=== PATIENT | male | born 1930 | race Caucasian/White ===

== ENCOUNTER 2018-01-11 08:12 | Emergency (ER) | payer MEDICARE, BC ==
--- NOTE | 2018-01-11 08:17 | EDM.PDOC ---
ED HPI GENERAL MEDICAL PROBLEM - General Chief Complaint: Lower Extremity Injury/Pain Stated Complaint: POSSIBLE BROKEN HIP Time Seen by Provider: 01/11/18 08:15 Source of Information: Reports: Patient - History of Present Illness INITIAL COMMENTS - FREE TEXT/NARRATIVE: HISTORY AND PHYSICAL: History of present illness: [ Patient presents via EMS with slip and fall on the ice complains of right hip pain/right elbow pain uncertain of head injury slight confusion however patient has received 50 g of fentanyl via EMS No fever nausea vomiting chills sweats no chest pain shortness breath headache dizziness palpitation no bowel or urine symptoms ] Review of systems: As per history of present illness and below otherwise all systems reviewed and negative. Past medical history: As per history of present illness and as reviewed below otherwise noncontributory. Surgical history: As per history of present illness and as reviewed below otherwise noncontributory. Social history: No reported history of drug or alcohol abuse. Family history: As per history of present illness and as reviewed below otherwise noncontributory. Physical exam: HEENT: Atraumatic, normocephalic, pupils reactive, negative for conjunctival pallor or scleral icterus, mucous membranes moist, throat clear, neck supple, nontender, trachea midline. Lungs: Clear to auscultation, breath sounds equal bilaterally, chest nontender. Heart: S1S2, regular, negative for clicks, rubs, or JVD. Abdomen: Soft, nondistended, nontender. Negative for masses or hepatosplenomegaly. Negative for costovertebral tenderness. Pelvis: Stable nontender. Genitourinary: Deferred. Rectal: Deferred. Extremities: Atraumatic, negative for cords or calf pain. Neurovascular unremarkable. Right lower extremity shortened with internal rotation Neuro: Awake, alert, oriented. Cranial nerves II through XII unremarkable. Cerebellum unremarkable. Motor and sensory unremarkable throughout. Exam nonfocal. Diagnostics: [Pelvis with right hip plain films Chest 1 view Elbow complete plain films CT head no contrast CT cervical spine no contrast CBC CMP UA INR troponin EKG ] Therapeutics: [50 g of fentanyl provided EMS Dilaudid 0.5 mg IV Normal saline 1 25 mL per hour [facility] except[facility] ] Impression: [Fall Right hip pain] Right hip intertrochanteric fracture Definitive disposition and diagnosis as appropriate pending reevaluation and review of above. right hip Pain Score (Numeric/FACES): 5 - Related Data Allergies Allergy/AdvReac Type Severity Reaction Status Date / Time fluticasone Allergy Swelling Verified 01/11/18 08:14 [From Flovent Diskus] morphine Allergy Hallucinati Verified 01/11/18 08:14 ons Home Meds: Home Meds Ascorbic Acid [Vitamin C] 500 mg PO DAILY 01/11/18 [History] Calcium Carbonate/Vitamin D3 [Calcium 500 + Vit D 400] 1 each PO DAILY 01/11/18 [History] Donepezil HCl [Donepezil HCl Odt] 10 mg PO BEDTIME 01/11/18 [History] Levothyroxine 25 mcg PO ACBREAKFAST 01/11/18 [History] Multivitamin [Multi-Vitamin Daily] 1 each PO DAILY 01/11/18 [History] Potassium 1 tab PO DAILY 01/11/18 [History] Pravastatin Sodium 10 mg PO DAILY 01/11/18 [History] Past Medical History HEENT History: Reports: Hard of Hearing Cardiovascular History: Reports: High Cholesterol Respiratory History: Reports: None. Denies: COPD Gastrointestinal History: Reports: GERD Genitourinary History: Reports: Prostate Disorder Musculoskeletal History: Reports: None Other Musculoskeletal History: right rotator cuff surgery. Broken wrist. Neurological History: Reports: Other (See Below) Other Neuro History: short term memory Psychiatric History: Reports: None Endocrine/Metabolic History: Reports: Hypothyroidism. Denies: Diabetes, Type II Hematologic History: Reports: None Immunologic History: Reports: None Oncologic (Cancer) History: Reports: Prostate (treated) Dermatologic History: Reports: None - Infectious Disease History Infectious Disease History: Reports: Chicken Pox - Past Surgical History Head Surgeries/Procedures: Reports: None HEENT Surgical History: Reports: None Social & Family History - Family History Family Medical History: Noncontributory - Tobacco Use Smoking Status *Q: Never Smoker Used Tobacco, but Quit: Yes Month Tobacco Last Used: 11/15/69 Second Hand Smoke Exposure: No - Caffeine Use Caffeine Use: Reports: Coffee, Soda - Recreational Drug Use Recreational Drug Use: No - Living Situation & Occupation Living situation: Reports: Occupation: Retired Review of Systems - Review of Systems Review Of Systems: ROS reveals no pertinent complaints other than HPI. ED EXAM, GENERAL - Physical Exam Exam: See Below Course - Vital Signs Last Recorded V/S: Last Vital Signs Temp 97.4 F 01/11/18 09:43 Pulse 61 01/11/18 09:43 Resp 18 01/11/18 09:43 BP 154/67 H 01/11/18 09:43 Pulse Ox 96 01/11/18 09:43 - Orders/Labs/Meds Orders: Active Orders 24 hr Category Date Time Status EKG 12 Lead [EKG Documentation Completion] [RC] STAT Care 01/11/18 08:17 Active UA W/MICROSCOPIC [URIN] Stat Lab 01/11/18 08:17 Ordered HYDROmorphone [Dilaudid] Med 01/11/18 10:22 Ordered 0.5 mg IVPUSH ONETIME PRN Sodium Chloride 0.9% [Normal Saline] 500 ml Med 01/11/18 10:00 Active IV STAT Medication Orders Hydromorphone HCl (Dilaudid) 0.5 mg IVPUSH ONETIME PRN PRN Reason: Pain Sodium Chloride (Normal Saline) 500 mls @ 125 mls/hr IV STAT PANCHO Last Admin: 01/11/18 10:08 Dose: 125 mls/hr Labs: Laboratory Tests 01/11/18 01/11/18 01/11/18 Range/Units 08:25 08:25 08:25 WBC 8.53 (4.0-11.0) K/uL RBC 4.15 L (4.50-5.90) M/uL Hgb 13.2 (13.0-17.0) g/dL Hct 38.9 (38.0-50.0) % MCV 93.7 (80.0-98.0) fL MCH 31.8 (27.0-32.0) pg MCHC 33.9 (31.0-37.0) g/dL RDW Std Deviation 46.2 (28.0-62.0) fl RDW Coeff of Caitie 13 (11.0-15.0) % Plt Count 206 (150-400) K/uL MPV 10.10 (7.40-12.00) fL Neut % (Auto) 69.1 (48.0-80.0) % Lymph % (Auto) 20.8 (16.0-40.0) % Ripley % (Auto) 7.9 (0.0-15.0) % Eos % (Auto) 1.8 (0.0-7.0) % Baso % (Auto) 0.4 (0.0-1.5) % Neut # (Auto) 5.9 H (1.4-5.7) K/uL Lymph # (Auto) 1.8 (0.6-2.4) K/uL Ripley # (Auto) 0.7 (0.0-0.8) K/uL Eos # (Auto) 0.2 (0.0-0.7) K/uL Baso # (Auto) 0.0 (0.0-0.1) K/uL Nucleated RBC % 0.0 /100WBC Nucleated RBCs # 0 K/uL INR 1.07 Sodium 139 (136-146) mmol/L Potassium 4.0 (3.5-5.1) mmol/L Chloride 107 (98-110) mmol/L Carbon Dioxide 22 (21-31) mmol/L BUN 13 (6.0-23.0) mg/dL Creatinine 0.9 (0.6-1.5) mg/dL Est Cr Clr Drug Dosing 55.94 mL/min Estimated GFR (MDRD) > 60.0 ml/min Glucose 109 (60-110) mg/dL Calcium 8.9 (8.8-10.8) mg/dL Total Bilirubin 0.6 (0.1-1.5) mg/dL AST 25 (5-40) IU/L ALT 19 (8-54) IU/L Alkaline Phosphatase 55 (40-150) Troponin I < 0.10 (0.0-0.29) NG/ML Total Protein 7.0 (6.0-8.0) g/dL Albumin 3.9 (3.4-4.8) g/dL Globulin 3.1 (2.0-3.5) g/dL Albumin/Globulin Ratio 1.3 (1.3-2.8) Meds: Medications Generic Name Dose Route Start Last Admin Trade Name Freq PRN Reason Stop Dose Admin Hydromorphone HCl 0.5 mg 01/11/18 10:22 Dilaudid IVPUSH ONETIME PRN Pain Sodium Chloride 500 mls @ 125 mls/hr 01/11/18 10:00 01/11/18 10:08 Normal Saline IV 125 mls/hr STAT PANCHO Administration Discontinued Medications Generic Name Dose Route Start Last Admin Trade Name Freq PRN Reason Stop Dose Admin Sodium Chloride 1,000 mls @ 125 mls/hr 01/11/18 09:45 Normal Saline IV STAT [facility] Departure - Departure Time of Disposition: 10:26 Disposition: DC/Tfer to Other 70 Condition: Fair Clinical Impression: Fracture of right hip - Discharge Information Referrals: Nilo Cunningham MD [Primary Care Provider] - Forms: ED Department Discharge - My Orders Last 24 Hours: My Active Orders 01/11/18 08:17 EKG 12 Lead [EKG Documentation Completion] [RC] STAT UA W/MICROSCOPIC [URIN] Stat 01/11/18 10:00 Sodium Chloride 0.9% [Normal Saline] 500 ml IV STAT 01/11/18 10:22 HYDROmorphone [Dilaudid] 0.5 mg IVPUSH ONETIME PRN - Assessment/Plan Last 24 Hours: My Active Orders 01/11/18 08:17 EKG 12 Lead [EKG Documentation Completion] [RC] STAT UA W/MICROSCOPIC [URIN] Stat 01/11/18 10:00 Sodium Chloride 0.9% [Normal Saline] 500 ml IV STAT 01/11/18 10:22 HYDROmorphone [Dilaudid] 0.5 mg IVPUSH ONETIME PRN
[2018-01-11 08:56] LABS: CHLORIDE,CL 107 mmol/L (98-110); SODIUM,NA 139 mmol/L (136-146)
[2018-01-11 09:44] VITALS: BP 154/67
[2018-01-11] MEDS ORDERED: Sodium Chloride 0.9% 1,000 ML IV SCH (09:45)
--- NOTE | 2018-01-11 09:58 | CR ---
EXAMINATION: Portable chest radiograph. HISTORY: Fall. FINDINGS: The trachea is midline. The cardiomediastinal silhouette is within normal limits. No pulmonary infilt rates, effusions or pneumothorax. Osseous structures appear osteopenic. Degenerative changes noted within the shoulders bilaterally. IMPRESSION: No acute cardiopulmonary process.
[2018-01-11] MEDS ORDERED: Sodium Chloride 0.9% 500 ML IV SCH (10:00)
--- NOTE | 2018-01-11 10:00 | CR ---
EXAMINATION: Right elbow HISTORY: Fall COMPARISON: None TECHNIQUE: 3 views FINDINGS/IMPRESSION: There is no acute osseous abnormality, dislocation, or fracture. No joint effusi on or soft tissue swelling. Mild enthesophyte formation noted along the epicondyles and triceps inser tion.
--- NOTE | 2018-01-11 10:02 | CR ---
EXAMINATION: Pelvis and right hip HISTORY: Fall COMPARISON: CT dated 08/11/2016 TECHNIQUE: AP pelvis and 2 views of the right hip FINDINGS: There is a comminuted mildly displaced and angulated intertrochanteric fracture noted on th e right. Hip joint spaces are preserved. Iliopectineal and ilioischial lines are intact. SI joints ar e symmetric. Bone mineralization is mildly osteopenic. IMPRESSION: 1. Comminuted right intertrochanteric fracture.
--- NOTE | 2018-01-11 10:05 | CT ---
EXAMINATION: Non contrast CT head. Coronal and sagittal reformats. HISTORY: Fall FINDINGS: No evidence of intra or extra axial hemorrhage, mass, midline shift, hydrocephalus or edema. Mild ge neralized atrophy. No hypoattenuation changes in the major vascular territories to suggest acute infarct. No abnormal intracranial calcifications are detected. No evidence of substantial vascular calcificat ions. There is opacification of a few ethmoid air cells. The mastoid air cells are clear. Orbits and globes are symmetric. Pituitary fossa appears unremarkable. Calvarium is intact. No evidence of skull fracture. IMPRESSION: 1. No acute intracranial findings. 2. Mild generalized atrophy. 3. Minimal paranasal sinus disease.
--- NOTE | 2018-01-11 10:12 | CT ---
EXAMINATION: CT cervical spine HISTORY: Pain COMPARISON: None TECHNIQUE: Axial CT images obtained through the cervical spine without contrast. Coronal and sagittal reconstructions obtained. FINDINGS: There is reversal of the normal cervical lordosis likely degenerative in nature. Minimal an terolisthesis of C3 on C4. 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 No fracture or acute o sseous abnormality. Small osteophyte disc complexes noted throughout the cervical spine without signi ficant osseous spinal canal or neural foraminal stenosis. Marginal osteophytes are noted. Prevertebra l soft tissues are within normal limits. Lung apices are clear. IMPRESSION: Moderate degenerative changes noted within the cervical spine without acute finding.
[2018-01-11] MEDS ORDERED: HYDROmorphone 2 MG/ML Syringe IVPUSH PRN (10:22)
[2018-01-11] MEDS ORDERED: HYDROmorphone 1 MG/ML Syringe IVPUSH ONE (10:31)
== END 2018-01-11 11:33 | disposition other institution (70) ==
LOC: MW.ED 08:12
DX: S72.141A Displaced intertrochanteric fracture of right femur, initial encounter for closed fracture (principal); E78.00 Pure hypercholesterolemia, unspecified; E03.9 Hypothyroidism, unspecified; Z88.5 Allergy status to narcotic agent; Z88.8 Allergy status to other drugs, medicaments and biological substances; Z79.899 Other long term (current) drug therapy; Z87.891 Personal history of nicotine dependence; W00.9XXA Unspecified fall due to ice and snow, initial encounter
CPT/HCPCS: 36415; 70450; 71045; 72125; 73080; 73502; 80053; 84484; 85025; 85610; 93005; 96361; 96374; 99285; J1170; J7040; 99283